=== PATIENT | female | born 1980 | race Caucasian/White ===

== ENCOUNTER → 2016-10-16 | Outpatient (CLI) | payer BC | LOC: MW.CHOBGYN 14:08 | PROVIDERS: ATTEND Nurse Practitioner Women's Health | DX: Z01.419 Encounter for gynecological examination (general) (routine) without abnormal findings (principal) | CPT/HCPCS: G0145 ==

== ENCOUNTER 2017-04-16 19:05 | Emergency (ER) | payer BC ==
[2017-04-16] MEDS ORDERED: Ondansetron 4 MG/2 ML SDV IVPUSH ONE (19:12)
[2017-04-16] MEDS ORDERED: Ketorolac 30 MG/ML SDV IVPUSH ONE (19:12)
[2017-04-16] MEDS ORDERED: Sodium Chloride 0.9% 1,000 ML IV ONE (19:12)
--- NOTE | 2017-04-16 19:12 | EDM.PDOC ---
ED HPI GENERAL MEDICAL PROBLEM - General Stated Complaint: MIGRAINE/NAUSEA Time Seen by Provider: 04/16/17 19:12 Source of Information: Reports: Patient - History of Present Illness INITIAL COMMENTS - FREE TEXT/NARRATIVE: HISTORY AND PHYSICAL: History of present illness: []Patient with history of migraine generally treated with [id number] medications present with typical migraine symptoms for right unilateral headache accompanied by nausea and light sensitivity she has vomited one time No fever chills sweats no chest pain shortness breath dizziness or palpitation Review of systems: As per history of present illness and below otherwise all systems reviewed and negative. Past medical history: As per history of present illness and as reviewed below otherwise noncontributory. Surgical history: As per history of present illness and as reviewed below otherwise noncontributory. Social history: No reported history of drug or alcohol abuse. Family history: As per history of present illness and as reviewed below otherwise noncontributory. Physical exam: HEENT: Atraumatic, normocephalic, pupils reactive, negative for conjunctival pallor or scleral icterus, mucous membranes moist, throat clear, neck supple, nontender, trachea midline. Lungs: Clear to auscultation, breath sounds equal bilaterally, chest nontender. Heart: S1S2, regular, negative for clicks, rubs, or JVD. Abdomen: Soft, nondistended, nontender. Negative for masses or hepatosplenomegaly. Negative for costovertebral tenderness. Pelvis: Stable nontender. Genitourinary: Deferred. Rectal: Deferred. Extremities: Atraumatic, negative for cords or calf pain. Neurovascular unremarkable. Neuro: Awake, alert, oriented. Cranial nerves II through XII unremarkable. Cerebellum unremarkable. Motor and sensory unremarkable throughout. Exam nonfocal. Diagnostics: []MRI on file Therapeutics: []1 L normal saline bolus Zofran 8 mg IV Toradol 30 mg IV Imitrex Ativan Impression: Migraine improved Definitive disposition and diagnosis as appropriate pending reevaluation and review of above. headache Pain Score (Numeric/FACES): 10 - Related Data Allergies Allergy/AdvReac Type Severity Reaction Status Date / Time diphenhydramine HCl Allergy Other Verified 04/16/17 19:15 [From Benadryl] Home Meds: Home Meds Control Pills 1 tab PO DAILY 04/16/17 [History] ED ROS GENERAL - Review of Systems Review Of Systems: ROS reveals no pertinent complaints other than HPI. ED EXAM, GENERAL - Physical Exam Exam: See Below Course - Vital Signs Last Recorded V/S: Last Vital Signs Temp 36.4 C 04/16/17 19:16 Pulse 83 04/16/17 19:16 Resp 18 04/16/17 19:16 BP 159/95 H 04/16/17 19:16 Pulse Ox 98 04/16/17 19:16 - Orders/Labs/Meds Meds: Medications Discontinued Medications Generic Name Dose Route Start Last Admin Trade Name Chi PRN Reason Stop Dose Admin Sodium Chloride 1,000 mls @ 999 mls/hr 04/16/17 19:12 04/16/17 19:36 Normal Saline IV 04/16/17 20:12 999 mls/hr STAT ONE Administration Ketorolac Tromethamine 30 mg 04/16/17 19:12 04/16/17 19:47 Toradol IVPUSH 04/16/17 19:13 30 mg ONETIME ONE Administration Lorazepam 1 mg 04/16/17 20:49 Ativan IVPUSH 04/16/17 20:50 ONETIME ONE Ondansetron HCl 8 mg 04/16/17 19:12 04/16/17 19:44 Zofran IVPUSH 04/16/17 19:13 8 mg ONETIME ONE Administration Sumatriptan Succinate 6 mg 04/16/17 20:49 Imitrex SUBCUT 04/16/17 20:50 ONETIME ONE Departure - Departure Time of Disposition: 21:04 Disposition: Home, Self-Care 01 Condition: Good Clinical Impression: Migraine - Discharge Information Referrals: PCP,None [Primary Care Provider] - Additional Instructions: The following information is given to patients seen in the emergency department who are being discharged to home. This information is to outline your options for follow-up care. We provide all patients seen in our emergency department with a follow-up referral. The need for follow-up, as well as the timing and circumstances, are variable depending upon the specifics of your emergency department visit. If you don't have a primary care physician on staff, we will provide you with a referral. We always advise you to contact your personal physician following an emergency department visit to inform them of the circumstance of the visit and for follow-up with them and/or the need for any referrals to a consulting specialist. The emergency department will also refer you to a specialist when appropriate. This referral assures that you have the opportunity for follow-up care with a specialist. All of these measure are taken in an effort to provide you with optimal care, which includes your follow-up. Under all circumstances we always encourage you to contact your private physician who remains a resource for coordinating your care. When calling for follow-up care, please make the office aware that this follow-up is from your recent emergency room visit. If for any reason you are refused follow-up, please contact the [facility] emergency department at and asked to speak to the emergency department charge nurse.
[2017-04-16] MEDS ORDERED: SUMAtriptan 6 MG/0.5 ML SDV SUBCUT ONE (20:49)
[2017-04-16] MEDS ORDERED: LORazepam 2 MG/ML MDV IVPUSH ONE (20:49)
[2017-04-16 21:14] VITALS: BP 160/91
== END 2017-04-16 21:36 | disposition home or self-care (01) ==
LOC: MW.ED 19:05
DX: G43.909 Migraine, unspecified, not intractable, without status migrainosus (principal); Z88.8 Allergy status to other drugs, medicaments and biological substances
CPT/HCPCS: 96361; 96372; 96374; 96375; 99283; J1885; J2060; J2405; J3030; J7040

== ENCOUNTER 2018-10-13 09:54 | Emergency (ER) | payer BC ==
[2018-10-13] MEDS ORDERED: Ketorolac 60 MG/2 ML SDV IM ONE (10:13)
--- NOTE | 2018-10-13 10:13 | EDM.PDOC ---
ED HPI GENERAL MEDICAL PROBLEM - General Chief Complaint: Lower Extremity Injury/Pain Stated Complaint: FELL- HURT TAIL BONE AND LEFT FOOT Time Seen by Provider: 10/13/18 10:12 Source of Information: Reports: Patient History Limitations: Reports: No Limitations - History of Present Illness INITIAL COMMENTS - FREE TEXT/NARRATIVE: HISTORY AND PHYSICAL: History of present illness: Patient is a 38-year-old female here with complaint of tailbone and left foot pain. She states she fell down a few steps last night, landing on he bottom. She denies head injury or LOC. She states her left pinky toe is black and blue, has been able to walk on it but pain shoots up the lateral side of the foot. Review of systems: As per history of present illness and below otherwise all systems reviewed and negative. Past medical history: As per history of present illness and as reviewed below otherwise noncontributory. Surgical history: As per history of present illness and as reviewed below otherwise noncontributory. Social history: No reported history of drug or alcohol abuse. Family history: As per history of present illness and as reviewed below otherwise noncontributory. Physical exam: General: Patient sitting comfortably in no acute distress and nontoxic appearing HEENT: Atraumatic, normocephalic, pupils reactive, negative for conjunctival pallor or scleral icterus, mucous membranes moist, throat clear, neck supple, nontender, trachea midline. No meningeal signs. Lungs: Clear to auscultation, breath sounds equal bilaterally, chest nontender. Heart: S1S2, regular, negative for clicks, rubs, or overt murmur. Abdomen: Soft, nondistended, nontender. Negative for masses or hepatosplenomegaly. Negative for costovertebral tenderness. Pelvis: Stable nontender. Genitourinary: Deferred. Rectal: Deferred. Spine: No vertebral tenderness or step offs to palpation. Pain to palpation of sacrum and coccyx. Extremities: Left pinky toe with ecchymosis but no obvious deformity and skin is intact. No proximal tenderness to palpation. negative for cords or calf pain. Neurovascular unremarkable. Neuro: Awake, alert, oriented. Cranial nerves II through XII unremarkable. Cerebellum unremarkable. Motor and sensory unremarkable throughout. Exam nonfocal. Notes: Diagnostics: x-ray left foot, x-ray sacrum and coccyx Therapeutics: Toradol 60mg IM Prescriptions: None Impression: Fall, foot injury, back injury Plan: 1. Ice, elevate, and motrin as instructed. May use a donut pillow as discussed. 2. Follow up with primary care provider 3. Return to ED as needed as discussed Definitive disposition and diagnosis as appropriate pending reevaluation and review of above. buttocks/left foot Pain Score (Numeric/FACES): 8 - Related Data Allergies Allergy/AdvReac Type Severity Reaction Status Date / Time diphenhydramine HCl Allergy Other Verified 10/13/18 10:10 [From Benadryl] Home Meds: Home Meds Cabergoline 0.5 mg PO DAILY 10/13/18 [History] Cyclobenzaprine [Flexeril] 10 mg PO DAILY PRN 10/13/18 [History] Fluticasone/Salmeterol [Fluticasone-Salmeterol 113-14 MCG Powder Inh] 1 spray INH DAILY 10/13/18 [History] Levonorgestrel-Ethin Estradiol [Falmina-28 Tablet] 1 each PO DAILY 10/13/18 [ History] Simvastatin [Zocor] 40 mg PO BEDTIME 10/13/18 [History] metFORMIN [Glucophage XR] 500 mg PO DAILY 10/13/18 [History] Past Medical History HEENT History: Reports: None Cardiovascular History: Reports: None Respiratory History: Reports: None Gastrointestinal History: Reports: None Genitourinary History: Reports: None EFFICIENCY CLERK History: Reports: , Other (See Below) Other EFFICIENCY CLERK History: PCOS Musculoskeletal History: Reports: None Neurological History: Reports: None Psychiatric History: Reports: None Endocrine/Metabolic History: Reports: Other (See Below) Other Endocrine/Metabolic History: insulin problem Hematologic History: Reports: None Immunologic History: Reports: None Oncologic (Cancer) History: Reports: Other (See Below) Other Oncologic History: Pituitary Tumor Dermatologic History: Reports: None - Infectious Disease History Infectious Disease History: Reports: None - Past Surgical History Head Surgeries/Procedures: Reports: None Female Surgical History: Reports: Section Social & Family History - Family History Family Medical History: Noncontributory - Caffeine Use Caffeine Use: Reports: Soda Review of Systems - Review of Systems Review Of Systems: ROS reveals no pertinent complaints other than HPI. ED EXAM, GENERAL - Physical Exam Exam: See Below (see dictation) Course - Vital Signs Last Recorded V/S: Last Vital Signs Temp 97.1 F 10/13/18 10:07 Pulse 100 10/13/18 10:07 Resp 18 10/13/18 10:07 BP 141/100 H 10/13/18 10:07 Pulse Ox 99 10/13/18 10:07 - Orders/Labs/Meds Meds: Medications Discontinued Medications Generic Name Dose Route Start Last Admin Trade Name Freq PRN Reason Stop Dose Admin Ketorolac Tromethamine 60 mg 10/13/18 10:13 10/13/18 10:19 Toradol IM 10/13/18 10:14 60 mg ONETIME ONE Administration Departure - Departure Time of Disposition: 11:18 Disposition: Home, Self-Care 01 Condition: Good Clinical Impression: Fall, Back injury, Foot injury - Discharge Information Referrals: PCP,None [Primary Care Provider] - Forms: ED Department Discharge Additional Instructions: The following information is given to patients seen in the emergency department who are being discharged to home. This information is to outline your options for follow-up care. We provide all patients seen in our emergency department with a follow-up referral. The need for follow-up, as well as the timing and circumstances, are variable depending upon the specifics of your emergency department visit. If you don't have a primary care physician on staff, we will provide you with a referral. We always advise you to contact your personal physician following an emergency department visit to inform them of the circumstance of the visit and for follow-up with them and/or the need for any referrals to a consulting specialist. The emergency department will also refer you to a specialist when appropriate. This referral assures that you have the opportunity for follow-up care with a specialist. All of these measure are taken in an effort to provide you with optimal care, which includes your follow-up. Under all circumstances we always encourage you to contact your private physician who remains a resource for coordinating your care. When calling for follow-up care, please make the office aware that this follow-up is from your recent emergency room visit. If for any reason you are refused follow-up, please contact the [facility] at and asked to speak to the emergency department charge nurse. [facility] [address] [place] [id number] 1. Ice, elevate, and motrin as instructed. May use a donut pillow as discussed. 2. Follow up with primary care provider 3. Return to ED as needed as discussed
--- NOTE | 2018-10-13 10:56 | CR ---
INDICATION: Status post fall yesterday TECHNIQUE: Left foot two views COMPARISON: None FINDINGS AND IMPRESSION: Normal alignment. No fracture. Tiny plantar calcaneal spur. No significant soft tissue swelling. Dictated by Aliza George MD @ 10/13/2018 10:54:39 AM Dictated by: Aliza George MD @ 10/13/2018 10:54:45 (Electronically Signed)
--- NOTE | 2018-10-13 11:10 | CR ---
INDICATION: fell last night INDICATION: Fall. TECHNIQUE: Sacrum/coccyx, three views. COMPARISON: None FINDINGS: Bones: Alignment is normal. No fractures or bone lesions. Joint spaces: Unremarkable. Soft tissues: Unremarkable. IMPRESSION: No acute bone abnormality. Dictated by Toni Woods MD @ 10/13/2018 11:10:07 AM Dictated by: Toni Woods MD @ 10/13/2018 11:10:15 (Electronically Signed)
[2018-10-13 11:45] VITALS: BP 141/92
== END 2018-10-13 11:30 | disposition home or self-care (01) ==
LOC: MW.ED 09:54
DX: S90.122A Contusion of left lesser toe(s) without damage to nail, initial encounter (principal); S39.92XA Unspecified injury of lower back, initial encounter; Z88.8 Allergy status to other drugs, medicaments and biological substances; Z79.899 Other long term (current) drug therapy; W10.9XXA Fall (on) (from) unspecified stairs and steps, initial encounter
CPT/HCPCS: 72220; 73620; 96372; 99283; J1885

== ENCOUNTER 2021-12-25 21:10 | Emergency (ER) | payer BC ==
[2021-12-25] MEDS ORDERED: Ketorolac 30 MG/ML SDV IVPUSH ONE (21:48)
[2021-12-25] MEDS ORDERED: Sodium Chloride 0.9% 1,000 ML IV ONE (21:48)
[2021-12-25 22:14] LABS: BLOOD UREA NITROGEN,BUN 17 mg/dL (7.0-18.0); CARBON DIOXIDE,CO2 24.9 mmol/L (21.0-32.0); CHLORIDE,CL 103 mmol/L (98-107); GLUCOSE RANDOM 109 mg/dL (74-106); LIPASE 163 U/L (73-393); POTASSIUM,K 4.1 mmol/L (3.5-5.1); SODIUM,NA 140 mmol/L (136-145)
[2021-12-25] MEDS ORDERED: Ondansetron 4 MG/2 ML SDV IVPUSH STA (22:58)
[2021-12-25] MEDS ORDERED: Pantoprazole 40 MG in Sodium Chloride 0.9% 10 ML IVPUSH STA (22:58)
[2021-12-26 00:35] VITALS: BP 164/98; PULSE 82
== END 2021-12-26 00:36 | disposition home or self-care (01) ==
LOC: MW.ED 21:10
DX: R10.13 Epigastric pain (principal); E78.00 Pure hypercholesterolemia, unspecified; E66.9 Obesity, unspecified; Z68.41 Body mass index [BMI] 40.0-44.9, adult; Z79.899 Other long term (current) drug therapy; Z88.8 Allergy status to other drugs, medicaments and biological substances
CPT/HCPCS: 36415; 71045; 80053; 81003; 81025; 83690; 85025; 96374; 96375; 99284; C9113; J1885; J2405; J3490; J7030